=== PATIENT | female | born 1975 | race American Indian/Alaskan Native ===

== ENCOUNTER 2018-02-18 22:04 | Emergency (ER) | payer BC ==
[2018-02-18] MEDS ORDERED: PERCOCET 5/325 ONE (23:12)
[2018-02-18] MEDS ORDERED: PERCOCET 5/325 PO ONE (23:16)
--- NOTE | 2018-02-18 23:32 | XRay Report ---
FINAL REPORT PROCEDURE: XR SHOULDER 2+V LT TECHNIQUE: LEFT shoulder radiographs including AP views in internal and external rotation and abduction. CPT 08487 HISTORY: hit by door. Pain and limited movement' COMPARISON: No prior studies are available for comparison. FINDINGS: Fracture (s) and/or Dislocation(s): None . Joint space(s): Normal . Soft tissues: Normal . Bone mineralization: Normal . Foreign bodies: None . IMPRESSION: Normal Examination
[2018-02-19] MEDS ORDERED: HCTZ PO ONE (00:27)
--- NOTE | 2018-02-19 00:30 | Emergency Department Report ---
Upper Extremity - HPI Chief Complaint: Shoulder Injury Stated Complaint: LT SHOULDER PAIN Time Seen by Provider: 02/19/18 00:25 Upper Extremity: Left Shoulder Occurred When: 1 Day Mechanism: Hit with Object Severity: severe Symptoms: Yes Pain with Movement, No Deformity, No Limited Range of Movement, No Numbness, No Weakness, No Swelling, No Bruising/Ecchymosis, No Laceration or Abrasion Other History: 42-year-old female comes in complaining of left shoulder pain. Patient reports that the pain radiates up her neck and down to her hands. Patient reports that she was coming through a door when the door hit back on her and hit her at that posterior aspect of the shoulder. Patient reports that his pain to raise her arm. There is no obvious deformity reported by triage nurse. Patient does have a history of high blood pressure and has not started her hydrochlorothiazide. It was noted that her blood pressure was 177/105 in triage. ED Review of Systems ROS: Stated complaint: LT SHOULDER PAIN Other details as noted in HPI Comment: All other systems reviewed and negative Musculoskeletal: arthralgia (left shoulder pain) Neurological: denies: headache, weakness, paresthesias ED Past Medical Hx - Past Medical History Previous Medical History?: Yes Hx Hypertension: Yes - Surgical History Past Surgical History?: Yes Additional Surgical History: right hand - Social History Smoking Status: Current Some Day Smoker Substance Use Type: None - Medications Home Medications: Home Medications Medication Instructions Recorded Confirmed Last Taken Type Sulfamethoxazole/Trimethoprim 1 each PO Q12HR #20 tablet 08/11/15 Unknown Rx [Bactrim DS TAB] traMADol [Ultram 50 MG tab] 50 mg PO Q6HR PRN #20 tablet 08/11/15 Unknown Rx Ibuprofen [Motrin 600 MG tab] 600 mg PO Q8H PRN #30 tablet 02/19/18 Unknown Rx Upper Extremity Exam - Exam General: Vital signs noted. No distress. Alert and acting appropriately. Head and Torso: No Back Tenderness Shoulder Exam: Yes Shoulder Tenderness, Yes Normal Range of Motion in Shoulder, Yes AC Joint Tenderness, No Shoulder Deformity Arm Exam: No Arm/Humerus Tenderness, No Arm Deformity Elbow: No Elbow Tenderness, No Normal Range of Motion in Elbow, No Elbow Deformity Forearm: No Forearm Tenderness, No Forearm Deformity, No Pain with Pronation, No Pain with Supination Wrist: Yes Normal ROM in Wrist, No Wrist Tenderness, No Wrist Deformity, No Snuffbox Tenderness, No Pain with Axial Thumb Compression Hand: Yes Normal ROM in Digit(s), No Hand Tenderness, No Hand Deformity, No Digit Tenderness, No Digit(s) Deformity, No Tendon Dysfunction CMS Exam: Yes Normal Distal Pulses, Yes Normal Capillary Refill, Yes Normal Distal Sensation, No Broken Skin ED Course Vital Signs 02/18/18 22:30 Temperature 98.2 F Pulse Rate 76 Respiratory 16 Rate Blood Pressure 177/105 O2 Sat by Pulse 99 Oximetry ED Medical Decision Making - Medical Decision Making Patient has been evaluated by this provider fast track. Patient has been given a Percocet for pain management. Provider ordered hydrochlorothiazide 25 mg for elevated blood pressure. X-ray of shoulder shows normal examination. The discharge patient on ibuprofen 800 mg by mouth every 8 hours when necessary dispensed 15. If symptoms persist or gets worse she should follow up with an orthopedist or her primary care provider. Critical care attestation.: If time is entered above; I have spent that time in minutes in the direct care of this critically ill patient, excluding procedure time. ED Disposition Clinical Impression: Uncontrolled hypertension Contusion of shoulder, left Qualifiers: Encounter type: initial encounter Qualified Code(s): S40.012A - Contusion of left shoulder, initial encounter Disposition: - TO HOME OR SELFCARE Is pt being admited?: No Does the pt Need Aspirin: No Condition: Stable Instructions: Hypertension (ED), Arthralgia (ED) Additional Instructions: Please take pain medication as needed. If her symptoms persist or gets worse please follow up with orthopedist or your primary care provider. Prescriptions: Ibuprofen [Motrin 600 MG tab] 600 mg PO Q8H PRN #30 tablet PRN Reason: Pain Referrals: PRIMARY CAREMD [Primary Care Provider] - 3-5 Days ADRIANA HERNANDEZ MD [Staff Physician] - 3-5 Days Forms: Work/School Release Form(ED)
[2018-02-19 00:48] VITALS: BP 145/98
== END 2018-02-19 00:47 | disposition home or self-care (01) ==
LOC: EEVIPCON 22:04 → ED 22:04
DX: S40.012A Contusion of left shoulder, initial encounter (principal); F17.200 Nicotine dependence, unspecified, uncomplicated; I10 Essential (primary) hypertension; W22.8XXA Striking against or struck by other objects, initial encounter; Y93.01 Activity, walking, marching and hiking; Y99.8 Other external cause status; Y92.89 Other specified places as the place of occurrence of the external cause
CPT/HCPCS: 99283

== ENCOUNTER 2020-02-11 01:28 | Emergency (ER) | payer BC, OTHER ==
[2020-02-11] MEDS ORDERED: NEOMY 3.5 MG/BACIT 400 UNITS/POLY B 5000 UNITS/GM OINT PACKET TP ONE ×3 (05:28→05:30)
--- NOTE | 2020-02-11 05:28 | Emergency Department Report ---
ED Extremity Problem HPI - General Chief complaint: Extremity Injury, Upper Stated complaint: RT FINGER FUNGUS Source: patient Mode of arrival: Ambulatory Limitations: No Limitations - History of Present Illness Initial comments: Patient is a 44-year-old -[place] female with no past medical history presents to the ED with complaint of acute onset persistent recurrent distal right middle finger pain due to swelling rash for the last 2 months worse in the last 2 weeks. Patient states that the rash started after she used acrylic nails on her nail and upon removal of these nails the rash developed and has been persistent and recurrent. Patient denies fever, chills, nausea, vomiting, traumatic injury, numbness and tingling or weakness of distal right middle finger, chest pain or shortness of breath. MD Complaint: extremity pain (distal right middle finger pain, swelling), extremity swelling (right middle finger) -: Gradual, month(s) (2), year(s) Location: right, upper extremity (middle finger) History of Same: Yes -: Yes myalgia Radiation: distal Severity scale (0 -10): 3 Quality: aching, dull Consistency: constant Improves with: nothing Worsens with: nothing Associated Symptoms: denies other symptoms, rash (swollen painful rash on distal right middle finger). denies: chest pain, shortness of breath, fever, myalgias, arthralgias - Related Data Previous Rx's Medication Instructions Recorded Last Taken Type Sulfamethoxazole/Trimethoprim 1 each PO Q12HR #20 tablet 08/11/15 Unknown Rx [Bactrim DS TAB] traMADoL [Ultram 50 MG tab] 50 mg PO Q6HR PRN #20 tablet 08/11/15 Unknown Rx Ibuprofen [Motrin 600 MG tab] 600 mg PO Q8H PRN #30 tablet 02/19/18 Unknown Rx Ibuprofen [Motrin] 600 mg PO Q8H PRN #24 tablet 02/11/20 Unknown Rx Terbinafine (Nf) [LamiSIL] 250 mg PO QDAY #14 tablet 02/11/20 Unknown Rx cephALEXin [Keflex] 500 mg PO Q8HR #30 cap 02/11/20 Unknown Rx Allergies Allergy/AdvReac Type Severity Reaction Status Date / Time No Known Allergies Allergy Unverified 08/11/15 03:37 ED Review of Systems ROS: Stated complaint: RT FINGER FUNGUS Other details as noted in HPI Constitutional: denies: chills, fever Eyes: denies: eye pain, eye discharge, vision change ENT: denies: ear pain, throat pain Respiratory: denies: cough, shortness of breath, wheezing Cardiovascular: denies: chest pain, palpitations Endocrine: no symptoms reported Gastrointestinal: denies: abdominal pain, nausea, diarrhea Genitourinary: denies: urgency, dysuria, discharge Musculoskeletal: joint swelling (distal right middle finger), arthralgia (distal right middle finger pain due to swollen rash). denies: back pain Skin: rash (swollen mauclopapular painful rash on distal right middle finger), change in hair/nails. denies: lesions Neurological: denies: headache, weakness, paresthesias Psychiatric: denies: anxiety, depression Hematological/Lymphatic: denies: easy bleeding, easy bruising ED Past Medical Hx - Past Medical History Previous Medical History?: Yes Hx Hypertension: Yes - Surgical History Past Surgical History?: Yes Additional Surgical History: right hand - Social History Smoking Status: Never Smoker Substance Use Type: None - Medications Home Medications: Home Medications Medication Instructions Recorded Confirmed Last Taken Type Sulfamethoxazole/Trimethoprim 1 each PO Q12HR #20 tablet 08/11/15 Unknown Rx [Bactrim DS TAB] traMADoL [Ultram 50 MG tab] 50 mg PO Q6HR PRN #20 tablet 08/11/15 Unknown Rx Ibuprofen [Motrin 600 MG tab] 600 mg PO Q8H PRN #30 tablet 02/19/18 Unknown Rx Ibuprofen [Motrin] 600 mg PO Q8H PRN #24 tablet 02/11/20 Unknown Rx Terbinafine (Nf) [LamiSIL] 250 mg PO QDAY #14 tablet 02/11/20 Unknown Rx cephALEXin [Keflex] 500 mg PO Q8HR #30 cap 02/11/20 Unknown Rx ED Physical Exam - General Limitations: No Limitations General appearance: alert, in no apparent distress - Head Head exam: Present: atraumatic, normocephalic, normal inspection - Eye Eye exam: Present: normal appearance, PERRL, EOMI Pupils: Present: normal accommodation - ENT ENT exam: Present: normal exam, normal orophraynx, mucous membranes moist, TM's normal bilaterally, normal external ear exam - Neck Neck exam: Present: normal inspection, full ROM. Absent: tenderness - Respiratory Respiratory exam: Present: normal lung sounds bilaterally. Absent: respiratory distress, wheezes, rales, chest wall tenderness, accessory muscle use, decreased breath sounds - Cardiovascular Cardiovascular Exam: Present: regular rate, normal rhythm, normal heart sounds. Absent: bradycardia, systolic murmur, diastolic murmur, rubs, gallop - GI/Abdominal GI/Abdominal exam: Present: soft, normal bowel sounds. Absent: tenderness, guarding, hyperactive bowel sounds, hypoactive bowel sounds - Extremities Exam Extremities exam: Present: normal inspection, full ROM, tenderness (Mildly tender distal right middle finger due to swelling rash), normal capillary refill. Absent: calf tenderness - Back Exam Back exam: Present: normal inspection, full ROM. Absent: tenderness, CVA tenderness (R), muscle spasm, paraspinal tenderness - Neurological Exam Neurological exam: Present: alert, oriented X3, CN II-XII intact, normal gait, reflexes normal - Psychiatric Psychiatric exam: Present: normal affect, normal mood - Skin Skin exam: Present: warm, dry, intact, normal color, rash (Swelling, mildly tender nonfluctuant distal right middle finger rash) ED Course Vital Signs 02/11/20 02/11/20 01:32 05:49 Temperature 97.6 F 98 F Pulse Rate 97 H 86 Respiratory 20 16 Rate Blood Pressure 177/115 Blood Pressure 140/96 [Right] O2 Sat by Pulse 98 98 Oximetry - I & D Right Distal Finger Type of Procedure: Simple Site: Distal right middle finger Blade Size: 11 I & D Procedure: betadine prep, sterile drapes applied, sterile dressing applied Progress: Patient tolerated the procedure well. Topical antibiotic was added after cutting and draining the abscess. The wound was then dressed appropriately and the patient was discharged home on pain medication and prophylactic antibiotics. Patient was advised to return to the ED immediately if symptoms get worse, otherwise follow-up with her primary care physician in 7 to 10 days for reevaluation. ED Medical Decision Making - Medical Decision Making This is a 44-year-old -[place] female with no past medical history presents to the ED with complaint of acute onset persistent recurrent distal right middle finger pain due to swelling rash for the last 2 months worse in the last 2 weeks. Patient states that the rash started after she used acrylic nails on her nail and upon removal of these nails the rash developed and has been persistent and recurrent. In the ED, patient is alert and oriented x3 and is not in distress. Patient was treated for pain in the ED. The distal right middle finger rash was cleaned thoroughly and incised and drained per protocol. Patient tolerated procedure well. The wound was then dressed appropriately and the patient discharged home on pain medications and antibiotics. Patient was also advised to follow-up with her primary care physician in 5 to 7 days for reevaluation or return to the ED immediately if symptoms get worse. - Differential Diagnosis cellulitis; paronychia; fungal infection Critical care attestation.: If time is entered above; I have spent that time in minutes in the direct care of this critically ill patient, excluding procedure time. ED Disposition Clinical Impression: Abscess around nail of right middle finger, Paronychia of right middle finger Disposition: DC- TO HOME OR SELFCARE Is pt being admited?: No Does the pt Need Aspirin: No Condition: Stable Instructions: Paronychia (ED), Abscess (ED) Additional Instructions: Take medication with food, drink plenty of fluids and follow-up with your primary care physician in 7 to 10 days for reevaluation. Return to the ED immediately if symptoms get worse. Prescriptions: cephALEXin [Keflex] 500 mg PO Q8HR #30 cap Terbinafine (Nf) [LamiSIL] 250 mg PO QDAY #14 tablet Ibuprofen [Motrin] 600 mg PO Q8H PRN #24 tablet PRN Reason: Pain Referrals: [facility] [Provider Group] - 7-10 days Time of Disposition: 05:36 Print Language: YORUBA
[2020-02-11 05:51] VITALS: BP 140/96
== END 2020-02-11 05:51 | disposition home or self-care (01) ==
LOC: ED 01:28
DX: L03.011 Cellulitis of right finger (principal)
CPT/HCPCS: 99282; A6250